=== PATIENT | female | born 1965 | race African-American/Black ===

== ENCOUNTER 2018-02-26 08:04 | Emergency (ER) | payer OTHER ==
[~2018-02-26] VITALS: Ht 157.5 cm; Wt 100.7 kg
[2018-02-26] MEDS ORDERED: LISINOPRIL20 MG PO (08:19)
[2018-02-26] MEDS ORDERED: LASIX 20 MG TAB20 MG PO (08:19)
[2018-02-26] MEDS ORDERED: SYNTHROID50 MCG PO (08:19)
[2018-02-26] MEDS ORDERED: ALDACTONE25 MG PO (08:20)
[2018-02-26] MEDS ORDERED: OMEPRAZOLE 20 M20 MG PO (08:20)
[2018-02-26] MEDS ORDERED: CLARITIN10 MG PO (08:21)
[2018-02-26] MEDS ORDERED: ZYRTEC10 M5 PO (08:21)
[2018-02-26] MEDS ORDERED: NORCO 5-325 TA1 EACH PO (08:48)
[2018-02-26] MEDS ORDERED: PREDNISONE 20 M20 MG PO (08:48)
[2018-02-26 08:56] VITALS: BP 116/83
== END 2018-02-26 08:57 | disposition home or self-care (01) ==
LOC: ER 08:04
DX: M10.9 Gout, unspecified (principal); Z91.040 Latex allergy status